=== PATIENT | female | born 1985 | race Asian ===

== ENCOUNTER 2023-10-25 08:55 | Emergency (ER) | payer BC ==
[~2023-10-25] VITALS: Ht 162.6 cm; Wt 68.0 kg
[2023-10-25 09:35] VITALS: BP 125/80; PULSE 109; RESP 20; TEMP 101.3; O2SAT 97
[2023-10-25 10:00] VITALS: O2SAT 97
[2023-10-25 10:17] VITALS: PULSE 91; RESP 20; RESP 22; O2SAT 97
[2023-10-25] MEDS: ALBUTEROL SULFATE/IPRATROPIU 3 ML SOL IH ONE (10:17)
[2023-10-25] MEDS: NACL 0.9% 2,000 ML IV ONE (10:20)
[2023-10-25] MEDS: ACETAMINOPHEN 325 MG TAB PO ONE (10:21)
[2023-10-25 10:35] LABS: BASOPHILS % (AUTO) 0.2 % (0.0-2.0); EOSINOPHILS % (AUTO) 0.1 % (0.0-4.0); HEMATOCRIT 38.9 % (36-48); HEMOGLOBIN 13.3 g/dL (12.0-16.0); LYMPHOCYTES # (AUTO) 1.1 K/uL (2.5-16.5); LYMPHOCYTES % (AUTO) 14.4 % (20.5-51.1); MEAN CORPUSCULAR HEMOGLOBIN 31 pg (27-31); MEAN CORPUSCULAR HGB CONC 34 g/dL (33-37); MEAN CORPUSCULAR VOLUME 90.7 fL (80-94); MONOCYTES # (AUTO) 0.5 K/uL (0.8-1.0); MONOCYTES % (AUTO) 6.9 % (1.7-9.3); NEUTROPHILS # (AUTO) 5.8 K/uL (1.8-7.7); NEUTROPHILS % (AUTO) 78.4 % (42.2-75.2); PLATELET COUNT (AUTO) 234 K/uL (140-450); RED BLOOD CELL COUNT(AUTO) 4.29 MIL/uL (4.20-5.40); RED CELL DISTRIBUTION WIDTH 12.7 % (11.6-13.7); WHITE BLOOD COUNT (AUTO) 7.5 K/uL (4.8-10.8)
[2023-10-25] MEDS ORDERED: cefTRIAXone 1,000 MG VIAL ONE (10:49)
[2023-10-25 10:50] LABS: CALCIUM 8.5 mg/dL (8.5-10.1); CARBON DIOXIDE 26.2 mmol/L (21-32); CREATININE 0.8 mg/dL (0.6-1.3); POTASSIUM 3.2 mmol/L (3.5-5.1)
[2023-10-25 10:58] LABS: ALANINE AMINOTRANSFERASE 65 U/L (12-78); ALBUMIN 3.5 g/dL (3.4-5.0); ALKALINE PHOSPHATASE 49 U/L (50-136); ASPARTATE AMINOTRANSFERASE 27 U/L (15-37); BILIRUBIN,DIRECT 0.1 mg/dL (0.0-0.3); TOTAL BILIRUBIN 0.4 mg/dL (0.0-1.0); TOTAL PROTEIN, SERUM 7.7 g/dL (6.4-8.2)
[2023-10-25 11:02] LABS: LACTIC ACID 3.2 mmol/L (0.4-2.0)
[2023-10-25] MEDS: NACL 0.9% 1,000 ML IV ONE (11:21)
[2023-10-25] MEDS ORDERED: AZITHROMYCIN 500 MG INJ VIAL IV ONE (11:23)
[2023-10-25] MEDS: AZITHROMYCIN 500 MG in DEXTROSE 5% 250 ML IV ONE (11:31)
[2023-10-25 11:32] LABS: BILIRUBIN,URINE NEGATIVE (NEGATIVE); BLOOD, URINE 2+ (NEGATIVE); COLOR,URINE YELLOW (YELLOW); LEUKOCYTE ESTERASE ,URINE TRACE (NEGATIVE); NITRITE, URINE NEGATIVE (NEGATIVE); PROTEIN,URINE TRACE (NEGATIVE); UGLUCOSE NEGATIVE (NEGATIVE); UROBILINOGEN,URINE 0.2 EU/dL (0.2 - 1)
[2023-10-25 11:52] LABS: FLU A ANTIGEN negative (NEGATIVE); FLU B ANTIGEN NEGATIVE (NEGATIVE)
[2023-10-25 12:04] LABS: APPEARANCE,URINE SLIGHTLY HAZY (CLEAR)
[2023-10-25 12:06] LABS: BACTERIA,URINE 2+ /HPF (None Seen); MUCUS,URINE 1+ /LPF (None Seen); WBC,URINE 0-5 /HPF (0-5)
[2023-10-25 12:46] VITALS: O2SAT 98
[2023-10-25] MEDS ORDERED: AMOX1TAB8 PO (13:31)
[2023-10-25 13:45] VITALS: BP 121/62; PULSE 82; RESP 20; TEMP 98.3; O2SAT 98
== END 2023-10-25 13:45 | disposition home or self-care (01) ==
LOC: MED 08:55
DX: J18.9 Pneumonia, unspecified organism (principal); R53.1 Weakness; M79.10 Myalgia, unspecified site; Z79.2 Long term (current) use of antibiotics
CPT/HCPCS: 36415; 71045; 80048; 80076; 81001; 81025; 83605; 84484; 85025; 87040; 87086; 87804; 93005; 94640; 96361; 96365; 96367; 99285; J0456; J0696; J7030